=== PATIENT | female | born 1975 | race Caucasian/White ===

== ENCOUNTER 2021-06-18 00:48 | Emergency (ER) | payer OTHER ==
[~2021-06-18] VITALS: Ht 160 cm; Wt 86.2 kg
[2021-06-18] MEDS ORDERED: CEPH500 PO (05:39)
[2021-06-18] MEDS ORDERED: IBUP600 PO (05:39)
== END 2021-06-18 08:44 | disposition home or self-care (01) ==
LOC: ER 00:48
DX: S09.90XA Unspecified injury of head, initial encounter (principal); S01.01XA Laceration without foreign body of scalp, initial encounter; S61.214A Laceration without foreign body of right ring finger without damage to nail, initial encounter; S63.286A Dislocation of proximal interphalangeal joint of right little finger, initial encounter; S63.284A Dislocation of proximal interphalangeal joint of right ring finger, initial encounter; Z23 Encounter for immunization; Z72.89 Other problems related to lifestyle; W19.XXXA Unspecified fall, initial encounter; Y92.410 Unspecified street and highway as the place of occurrence of the external cause
CPT/HCPCS: 12001; 36415; 70450; 72125; 73120; 90471; 90714; 96365-59; 96375-59; 99284-25; J0690; J1200; J2060; J7030